=== PATIENT | male | born 1970 | race Caucasian/White ===

== ENCOUNTER 2017-08-07 11:03 | Emergency (ER) | payer OTHER ==
[2017-08-07] MEDS ORDERED: ASPIRIN 81 MG CHEWABLE TABLET ONE (11:29)
[2017-08-07 11:46] LABS: Absolute Monocytes 0.4 K/uL (0.1-1.3); Absolute Neutrophil 3.3 K/uL (1.8-8.0); Basophils % 0.6 % (0-1.3); Eosinophils % 1.7 % (0-4.4); Hematocrit 43.6 % (39.6-49.0); Lymphocytes % 34.1 % (15.3-44.8); MCV 91.1 fL (80-100); MPV 10.3 fL (7.6-11.3); Monocytes % 6.3 % (3.3-12.3); RBC Red Blood Cell Count 4.78 M/uL (4.33-5.43)
[2017-08-07 11:54] LABS: Protime INR 0.94
[2017-08-07 12:06] LABS: Albumin 4.1 g/dL (3.2-5.5); Bilirubin Direct 0.1 mg/dL (0-0.2); Bilirubin Total 0.8 mg/dL (0.3-1.2); Protein, Total 7.6 g/dL (6.0-8.3)
--- NOTE | 2017-08-07 12:46 | RAD REPORT ---
EXAM DESCRIPTION: Celsa Single View08/07/2017 11:54 am CLINICAL HISTORY: Chest pain COMPARISON: May 2016 FINDINGS: The lungs appear clear of acute infiltrate. The heart is normal size IMPRESSION: No acute abnormalities displayed
--- NOTE | 2017-08-07 14:09 | EDPHYS ---
Physician Documentation [facility] Name: Gabriele Magdaleno Age: 47 yrs Sex: Male : 1970 Arrival Date: 08/07/2017 Time: 11:06 Bed 7 Private MD: Darrel Herrera ED Physician Elijah Cuellar HPI: 08/07 11:39 This 47 yrs old Male presents to ER via Ambulatory with complaints of Chest jr8 Tightness, High Blood Pressure, Dizziness. 11:39 The patient or guardian reports chest pain that is located primarily in the substernal jr8 area. Onset: acutely, this morning, today. The pain radiates to jaw. Associated signs and symptoms: Pertinent positives: dizziness. The chest pain is described as a heaviness, a pressure. Duration: The patient or guardian reports a single episode, that is still ongoing. Modifying factors: The symptoms are alleviated by nothing. the symptoms are aggravated by nothing. Severity of pain: At its worst the pain was moderate in the emergency department the pain is unchanged. The patient has not experienced similar symptoms in the past. The patient has not recently seen a physician. chest pressure that started at 6 am this morning while at rest. Has not gone away. Historical: - Allergies: 11:20 No Known Allergies; jl7 - Home Meds: 11:20 Lorazepam Oral [Active]; jl7 - PMHx: 11:20 Anxiety; jl7 - Immunization history:: Adult Immunizations unknown. - Social history:: Smoking status: Patient/guardian denies using tobacco, Patient uses alcohol, occasionally. ROS: 11:39 Eyes: Negative for injury, pain, redness, and discharge, ENT: Negative for injury, jr8 pain, and discharge, Neck: Negative for injury, pain, and swelling, Respiratory: Negative for shortness of breath, cough, wheezing, and pleuritic chest pain, Abdomen/GI: Negative for abdominal pain, nausea, vomiting, diarrhea, and constipation, Back: Negative for injury and pain, MS/Extremity: Negative for injury and deformity, Skin: Negative for injury, rash, and discoloration, Neuro: Negative for headache, weakness, numbness, tingling, and seizure. 11:39 Cardiovascular: Positive for chest pain, Negative for edema, orthopnea, palpitations, paroxysmal nocturnal dyspnea. Exam: 11:39 Eyes: Pupils equal round and reactive to light, extra-ocular motions intact. Lids and jr8 lashes normal. Conjunctiva and sclera are non-icteric and not injected. Cornea within normal limits. Periorbital areas with no swelling, redness, or edema. ENT: Nares patent. No nasal discharge, no septal abnormalities noted. Tympanic membranes are normal and external auditory canals are clear. Oropharynx with no redness, swelling, or masses, exudates, or evidence of obstruction, uvula midline. Mucous membranes moist. Neck: Trachea midline, no thyromegaly or masses palpated, and no cervical lymphadenopathy. Supple, full range of motion without nuchal rigidity, or vertebral point tenderness. No Meningismus. Cardiovascular: Regular rate and rhythm with a normal S1 and S2. No gallops, murmurs, or rubs. Normal PMI, no JVD. No pulse deficits. Respiratory: Lungs have equal breath sounds bilaterally, clear to auscultation and percussion. No rales, rhonchi or wheezes noted. No increased work of breathing, no retractions or nasal flaring. Abdomen/GI: Soft, non-tender, with normal bowel sounds. No distension or tympany. No guarding or rebound. No evidence of tenderness throughout. Back: No spinal tenderness. No costovertebral tenderness. Full range of motion. Skin: Warm, dry with normal turgor. Normal color with no rashes, no lesions, and no evidence of cellulitis. MS/ Extremity: Pulses equal, no cyanosis. Neurovascular intact. Full, normal range of motion. Neuro: Awake and alert, GCS 15, oriented to person, place, time, and situation. Cranial nerves II-XII grossly intact. Motor strength 5/5 in all extremities. Sensory grossly intact. Cerebellar exam normal. Normal gait. 11:39 ECG was reviewed by the Attending Physician. jr8 Vital Signs: 11:20 BP 145 / 89; Pulse 55; Resp 16 S; Temp 98.3(O); Pulse Ox 97% on R/A; Weight 117.93 kg jl7 (R); Height 6 ft. 2 in. (187.96 cm) (R); Pain 7/10; 11:40 BP 125 / 98; Pulse 54; Resp 16; Pulse Ox 98% ; jl7 12:27 BP 122 / 89; Pulse 60; Resp 18; Pulse Ox 98% on R/A; ae1 12:52 BP 124 / 81; Pulse 53; Resp 16; Pulse Ox 96% ; jl7 13:30 BP 133 / 84; Pulse 53; Resp 16; Pulse Ox 100% ; jl7 14:21 BP 140 / 84; Pulse 52; Resp 16; Pulse Ox 99% ; jl7 11:20 Body Mass Index 33.38 (117.93 kg, 187.96 cm) jl7 MDM: 11:10 Patient medically screened. jr8 11:39 The patient was given aspirin in the Emergency Department. Test interpretation: by ED jr8 physician or midlevel provider: ECG. 13:32 HEART Score: History: Moderately Suspicious (1), ECG: Normal (0), Age: > 45 and < 65 jr8 years (1), Risk Factors: 1 or 2 risk factors (1), [+ Family HX] Troponin: < or = 1 x Normal Limit (0). Data reviewed: vital signs, nurses notes, lab test result(s), EKG, radiologic studies, plain films, and as a result, I will discharge patient. Counseling: I had a detailed discussion with the patient and/or guardian regarding: the historical points, exam findings, and any diagnostic results supporting the discharge/admit diagnosis, lab results, radiology results, the need for outpatient follow up, a transporter driver, to return to the emergency department if symptoms worsen or persist or if there are any questions or concerns that arise at home. Special discussion: Based on the patient's history, exam, and Dx evaluation, there is no indication for emergent intervention or inpatient Tx. It is understood by the patient/guardian that if the Sx's persist or worsen they need to return immediately for re-evaluation. ED course: pain 0 of 10 currently. 08/07 11:26 Order name: Basic Metabolic Panel; Complete Time: 12:08/07 11:26 Order name: BNP; Complete Time: 12:08/07 11:26 Order name: CBC with Diff; Complete Time: 12:08/07 11:26 Order name: LFT's; Complete Time: 12:08/07 11:26 Order name: Magnesium; Complete Time: 12:08/07 11:26 Order name: PT-INR; Complete Time: 12:08/07 11:26 Order name: Troponin (emerg Dept Use Only); Complete Time: 12:09 08/07 11:26 Order name: XRAY Chest (1 view); Complete Time: 12:47 08/07 11:26 Order name: EKG; Complete Time: 11:27 08/07 11:26 Order name: Cardiac monitoring; Complete Time: 11:39 08/07 11:26 Order name: EKG - Nurse/Tech; Complete Time: 39 08/07 11:26 Order name: IV Saline Lock; Complete Time: 11:39 08/07 13:10 Order name: Troponin (emerg Dept Use Only): 13:26 Draw time; Complete Time: 14:07 08/07 11:26 Order name: Labs collected and sent; Complete Time: 08/07 11:26 Order name: O2 Per Protocol; Complete Time: 08/07 11:26 Order name: O2 Sat Monitoring; Complete Time: EC:39 Rate is 55 beats/min. Rhythm is regular, Sinus bradycardia. QRS Anchor Point is Normal. LA jr8 interval is normal at 182 msec. QRS interval is normal at 84 msec. QT interval is normal at 382 msec. No Q waves. T waves are Normal. No ST changes noted. Clinical impression: Sinus bradycardia. Interpreted by me. Reviewed by me. Administered Medications: 11:30 Drug: Aspirin Chewable Tablet 324 mg Route: PO; jl7 Disposition: 16:48 Co-signature as Attending Physician, Elijah Cuellar MD I agree with the assessment and kdr plan of care. Disposition: 08/07/17 14:08 Discharged to Home. Impression: Chest pain, unspecified. - Condition is Stable. - Discharge Instructions: Nonspecific Chest Pain, Aspirin and Your Heart. - Medication Reconciliation Form, Thank You Letter, Antibiotic Education, Prescription Opioid Use form. - Follow up: Jose King MD; When: 1 - 2 days; Reason: Recheck today's complaints, Continuance of care, Re-evaluation by your physician. - Problem is new. - Symptoms are resolved. Signatures: Dispatcher [employer] EDPR Elijah Cuellar MD MD kdr Roszak, Josh, PA PA jr8 Young, Jahala, RN RN jl7 Corrections: (The following items were deleted from the chart) 14:24 14:08 08/07/2017 14:08 Discharged to Home. Impression: Chest pain, unspecified. jl7 Condition is Stable. Forms are Medication Reconciliation Form, Thank You Letter, Antibiotic Education, Prescription Opioid Use. Follow up: Jose King; When: 1 - 2 days; Reason: Recheck today's complaints, Continuance of care, Re-evaluation by your physician. Problem is new. Symptoms are resolved. jr8
--- NOTE | 2017-08-07 14:09 | ER ---
Nurse's Notes [facility] Name: Gabriele Magdaleno Age: 47 yrs Sex: Male : 1970 Arrival Date: 08/07/2017 Time: 11:06 Bed 7 Private MD: Darrel Herrera Diagnosis: Chest pain, unspecified Presentation: 08/07 11:16 Presenting complaint: Patient states: Chest tightness started this morning, took my BP jl7 at work and it was high (150 SBP) so they told me to come get checked out to make sure I'm not having something with my heart going on. Transition of care: patient was not received from another setting of care. Onset of symptoms was August 07, 2017. Initial Sepsis Screen: Does the patient meet any 2 criteria? No. Patient's initial sepsis screen is negative. Does the patient have a suspected source of infection? No. Patient's initial sepsis screen is negative. Care prior to arrival: None. 11:16 Method Of Arrival: Ambulatory jl7 11:16 Acuity: OSMAR 2 jl7 Triage Assessment: 11:20 General: Appears in no apparent distress. uncomfortable, Behavior is calm, cooperative, jl7 appropriate for age. Pain: Denies pain. Neuro: Level of Consciousness is awake, alert, obeys commands, Oriented to person, place, time, situation. Cardiovascular: Chest pain is described as mild, quality is pressure, is located in chest wall began 4 hours prior to arrival episodes are continuous pt rates 'chest tightness' /10.. Respiratory: Airway is patent Respiratory effort is even, unlabored, Respiratory pattern is regular, symmetrical. Derm: Skin is pink, warm \\T\\ dry. Historical: - Allergies: 11:20 No Known Allergies; jl7 - Home Meds: 11:20 Lorazepam Oral [Active]; jl7 - PMHx: 11:20 Anxiety; jl7 - Immunization history:: Adult Immunizations unknown. - Social history:: Smoking status: Patient/guardian denies using tobacco, Patient uses alcohol, occasionally. Screenin:39 Abuse screen: Denies threats or abuse. Denies injuries from another. Nutritional jl7 screening: No deficits noted. Tuberculosis screening: No symptoms or risk factors identified. Fall Risk IV access (20 points). Total Best Fall Scale indicates No Risk (0-24 pts). Assessment: 11:27 General: See triage assessment. jl7 12:58 Reassessment: Patient is alert, oriented x 3, equal unlabored respirations, skin jl7 warm/dry/pink. Pt reports "I fell asleep for a while and now the pressure is like a 2/10." Provider at bedside. Pain: Denies pain. Pain does not radiate. Pain began gradually. 14:00 Reassessment: Provider at bedside discussing results and plan of care. jl7 Vital Signs: 11:20 BP 145 / 89; Pulse 55; Resp 16 S; Temp 98.3(O); Pulse Ox 97% on R/A; Weight 117.93 kg jl7 (R); Height 6 ft. 2 in. (187.96 cm) (R); Pain 7/10; 11:40 BP 125 / 98; Pulse 54; Resp 16; Pulse Ox 98% ; jl7 12:27 BP 122 / 89; Pulse 60; Resp 18; Pulse Ox 98% on R/A; ae1 12:52 BP 124 / 81; Pulse 53; Resp 16; Pulse Ox 96% ; jl7 13:30 BP 133 / 84; Pulse 53; Resp 16; Pulse Ox 100% ; jl7 14:21 BP 140 / 84; Pulse 52; Resp 16; Pulse Ox 99% ; jl7 11:20 Body Mass Index 33.38 (117.93 kg, 187.96 cm) jl7 ED Course: 11:06 Patient arrived in ED. mr 11:07 None, None is Private Physician. mr 11:07 Darrel Herrera MD is Private Physician. mr 11:10 Devang Singh PA is [facility]. jr8 11:10 Elijah Cuellar MD is Attending Physician. jr8 11:16 Saad Young RN is Primary Nurse. jl7 11:19 Triage completed. jl7 11:20 Arm band placed on right wrist. jl7 11:30 Initial lab(s) drawn, by me, sent to lab. EKG done, by ED staff, reviewed by Devang QUARLES. Inserted saline lock: 20 gauge in right antecubital area, using aseptic technique. Blood collected. Patient maintains SpO2 saturation greater than 95% on room air. 11:39 Patient has correct armband on for positive identification. Placed in gown. Bed in low jl7 position. Call light in reach. Side rails up X 1. sports therapist on. Pulse ox on. NIBP on. 11:56 XRAY Chest (1 view) In Process Unspecified. EDIN 14:08 Jose King MD is Referral Physician. jr8 14:23 No provider procedures requiring assistance completed. IV discontinued, intact, jl7 bleeding controlled, No redness/swelling at site. Pressure dressing applied. Administered Medications: 11:30 Drug: Aspirin Chewable Tablet 324 mg Route: PO; jl7 Outcome: 14:08 Discharge ordered by . jr8 14:23 Discharged to home ambulatory. jl7 14:23 Condition: stable 14:23 Discharge instructions given to patient, Instructed on discharge instructions, follow up and referral plans. Demonstrated understanding of instructions, follow-up care. 14:24 Patient left the ED. jl7 Signatures: Dispatcher [employer] [facility] Lilliana Castillo Josh, PA PA jr8 Abiodun Liu RN RN ae1 Saad Young RN RN jl7
--- NOTE | 2017-08-07 14:34 | EKG ---
Test Date: 2017-08-07 Test Time: 11:32:13 Coding Consultant: TRICIA MEASUREMENT RESULTS: Intervals: Rate: 55 FL: 182 QRSD: 84 QT: 400 QTc: 382 [place]: P: 60 FL: 182 QRS: 14 T: 51 INTERPRETIVE STATEMENTS: Sinus bradycardia Otherwise normal ECG Compared to ECG 06/18/2016 17:34:25 Sinus rhythm no longer present Myocardial infarct finding no longer present Electronically Signed On 08-07-17 14:34:07 CDT by Jose King
[2017-08-07 14:47] VITALS: TEMP 98.3
[2017-08-07 14:52] VITALS: BP 140/84; O2SAT 99
== END 2017-08-07 14:24 | disposition home or self-care (01) ==
LOC: ER 11:03
DX: R07.9 Chest pain, unspecified (principal); F41.9 Anxiety disorder, unspecified
CPT/HCPCS: 36415; 71045; 80048; 80076; 83735; 83880; 84484; 85025; 85610; 93005; 99285